=== PATIENT | female | born 1955 | race Caucasian/White ===

== ENCOUNTER 2016-04-30 00:12 | Emergency (ER) | payer MEDICARE ==
[2016-04-30 00:44] VITALS: BP 178/62
--- NOTE | 2016-04-30 07:57 | EKG REPORT ---
SEVERITY:- BORDERLINE ECG - SINUS RHYTHM PROBABLE LEFT ATRIAL ABNORMALITY BORDERLINE R WAVE PROGRESSION, ANTERIOR LEADS : Confirmed by: Sita Garcia 30-Apr-2016 07:57:12
== END 2016-04-30 04:35 | disposition left against medical advice (07) ==
LOC: ER 00:12
DX: Z53.9 Procedure and treatment not carried out, unspecified reason (principal); R06.02 Shortness of breath
CPT/HCPCS: 93005; 93010

== ENCOUNTER 2016-09-03 23:37 | Emergency (ER) | payer MEDICARE, MEDICAID ==
--- NOTE | 2016-09-04 01:46 | ER Document Report ---
ED General - General Chief Complaint: Fall Stated Complaint: FALL/HEAD INJURY Time Seen by Provider: 09/04/16 01:45 Mode of Arrival: Ambulatory Information source: Patient TRAVEL OUTSIDE OF THE [place] IN LAST 30 DAYS: No - HPI Notes: Patient presents with reports that she got up from a seated position outside and then stumbled fell struck her head against the edge of a wall and felt dizzy after striking her head. Patient reports a mild headache since that time. She denies any other significant musculoskeletal injury. She reports no chest pain or palpitations with this episode, but she questions having a rapid heart rate on another occasion. The patient reports no abdominal pain, neck pain, back pain or other injury. No recent medication changes. - Related Data Allergies/Adverse Reactions: amoxicillin [From Augmentin] Allergy (Verified 09/03/16 23:49) azithromycin [From Zithromax] Allergy (Verified 09/03/16 23:49) bupropion [From Wellbutrin] Allergy (Verified 09/03/16 23:49) cephalexin [From Keflex] Allergy (Verified 09/03/16 23:49) clavulanic acid [From Augmentin] Allergy (Verified 09/03/16 23:49) Iodinated Contrast Media - Oral and [Iodinated Contrast Media - IV Dye] Allergy (Verified 09/03/16 23:49) prednisone Allergy (Verified 09/03/16 23:49) Past Medical History - General Information source: Patient - Social History Smoking Status: Former Smoker Frequency of alcohol use: None Drug Abuse: None Lives with: Alone Family History: Reviewed & Not Pertinent Patient has suicidal ideation: No Patient has homicidal ideation: No - Past Medical History Cardiac Medical History: Reports: Hx Hypercholesterolemia, Hx Hypertension Renal/ Medical History: Denies: Hx Peritoneal Dialysis Psychiatric Medical History: Reports: Hx Depression Past Surgical History: Reports: Hx Tubal Ligation Review of Systems - Review of Systems Notes: REVIEW OF SYSTEMS: CONSTITUTIONAL : Denies fever, chills, or sweats. Denies recent illness. EENT: Denies eye, ear, throat, or mouth pain or symptoms. Denies nasal or sinus congestion or discharge. Denies throat, tongue, or mouth swelling or difficulty swallowing. CARDIOVASCULAR: Denies chest pain. Denies palpitations or racing or irregular heart beat. Denies ankle edema. RESPIRATORY: Denies cough, cold, or chest congestion. Denies shortness of breath, difficulty breathing, or wheezing. GASTROINTESTINAL: Denies abdominal pain or distention. Denies nausea, vomiting , or diarrhea. Denies blood in vomitus, stools, or per rectum. Denies black, tarry stools. Denies constipation. GENITOURINARY: Denies difficulty urinating, painful urination, burning, frequency, blood in urine, or discharge. FEMALE GENITOURINARY: Denies vaginal bleeding, heavy or abnormal periods, irregular periods. Denies vaginal discharge or odor. MUSCULOSKELETAL: Denies back or neck pain or stiffness. Denies joint pain or swelling. SKIN: Denies rash, lesions or sores. HEMATOLOGIC : Denies easy bruising or bleeding. LYMPHATIC: Denies swollen, enlarged glands. NEUROLOGICAL: Denies confusion or altered mental status. Patient's unsure if she may have briefly lost consciousness, although she did not awake on the floor. Denies weakness or paralysis or loss of use of either side. Denies problems with gait or speech. Denies sensory loss, numbness, or tingling. Denies seizures. PSYCHIATRIC: Denies anxiety or stress. Denies depression, suicidal ideation, or homicidal ideation. ALL OTHER SYSTEMS REVIEWED AND NEGATIVE. Dictation was performed using [employer] voice recognition software Physical Exam - Vital signs Vitals: Temp Pulse Resp BP Pulse Ox 97.7 F 84 20 187/81 H 96 09/03/16 23:49 09/03/16 23:49 09/03/16 23:49 09/03/16 23:49 09/03/16 23:49 - Notes Notes: PHYSICAL EXAMINATION: GENERAL: Well-appearing, well-nourished and in no acute distress. HEAD: Normocephalic, but the patient does have contusion to the left parietal region. No bony deformity or crepitance. EYES: Pupils equal round and reactive to light, extraocular movements intact, conjunctiva are normal. ENT: Nares patent, oropharynx clear without exudates. Moist mucous membranes. Extremely poor dentition. Tympanic membranes clear bilaterally. NECK: Normal range of motion, supple without lymphadenopathy LUNGS: Breath sounds clear to auscultation bilaterally and equal. No wheezes rales or rhonchi. HEART: Regular rate and rhythm without murmurs ABDOMEN: Soft, nontender, nondistended abdomen. No guarding, no rebound. No masses appreciated. Female : deferred Musculoskeletal: Normal range of motion, no pitting or edema. No cyanosis. No pain to all 4 extremities. NEUROLOGICAL: Cranial nerves grossly intact. Normal speech, normal gait. Normal sensory, motor exams. No cerebellar ataxia. Patient is alert and oriented 4. PSYCH: Normal mood, normal affect. SKIN: Warm, Dry, normal turgor, no rashes or lesions noted. Course - Re-evaluation Re-evalutation: 09/04/16 05:[address] scan which was negative for acute intracranial injury or other abnormality. Patient was hypothyroid, and most likely subtherapeutic on her Synthroid 125 g daily, which she stated she was compliant with. No renal insufficiency or anemia or cardiac ischemia. Patient states she has a previous history of hyperglycemia and has previously been on Glucophage, but states she was able to be taken off of it due to good diet control. Patient was observed drinking a regular cola at the bedside and her blood sugar was 370. Diabetic dietary counseling was undertaken, and the patient has a follow-up on Wednesday to obtain a glucometer and further evaluation and most likely will need a hemoglobin A1c. With a normal bicarbonate, there is no evidence for DKA. Question of the patient's occasional lightheaded sensation may be secondary to relative dehydration related to her hyperglycemia. - Vital Signs Vital signs: Temp Pulse Resp BP Pulse Ox 97.4 F 81 18 159/92 H 97 09/04/16 05:00 09/04/16 05:00 09/04/16 05:00 09/04/16 05:00 09/04/16 05:00 - Laboratory Result Diagrams: 09/04/16 02:23 09/04/16 02:23 Laboratory results interpreted by me: 09/04/16 09/04/16 02:23 02:23 Glucose 370 H Direct Bilirubin 0.5 H Alkaline Phosphatase 149 H TSH 11.50 H Free T4 0.67 L - EKG Interpretation by Nc EKG shows normal: Sinus rhythm Additional EKG results interpreted by me: 09/04/16 03:01 EKG as interpreted by ks showed normal sinus rhythm heart rate of 66. There is no gross evidence for acute KS or ischemia noted. There is no change from previous EKG reviewed from 04/30/16. 09/04/16 03:03 Discharge - Discharge Clinical Impression: Hyperglycemia Hypothyroidism Qualifiers: Hypothyroidism type: unspecified Qualified Code(s): E03.9 - Hypothyroidism, unspecified Head injury Qualifiers: Encounter type: initial encounter Qualified Code(s): S09.90XA - Unspecified injury of head, initial encounter Condition: Stable Disposition: HOME, SELF-CARE Instructions: Hypothyroidism ([facility]), Hyperglycemia ([facility]), Head Injury Precautions ([facility]) Additional Instructions: You need follow-up for hyperglycemia. U will need a glucometer and further diabetic education. Maintain a low sugar diabetic diet. Drink plenty of water. Increase her Synthroid level from 125 to 175 g daily. Prescriptions: Levothyroxine Sodium [Synthroid] 175 mcg PO DAILY #30 tablet Metformin HCl [Glucophage] 500 mg PO BID #60 tablet
[2016-09-04 02:35] LABS: ABSOLUTE EOSINOPHILS # (AUTO) 0.2 10^3/uL (0.0-0.6); ABSOLUTE LYMPHOCYTES (AUTO) 3.5 10^3/uL (0.5-4.7); ABSOLUTE MONOCYTES (AUTO) 0.7 10^3/uL (0.1-1.4); ABSOLUTE NEUT (AUTO) 4.7 10^3/uL (1.7-8.2); BASOPHILS % (AUTO) 0.5 % (0-2); EOSINOPHILS % (AUTO) 2.4 % (0-6); HEMATOCRIT 42.4 % (36.0-47.0); HEMOGLOBIN 14.5 g/dL (12.0-15.5); HGB HCT DIFFERENCE 1.1; LYMPHOCYTES % (AUTO) 38.4 % (13-45); MEAN CORPUSCULAR HGB CONC 34.3 g/dL (32.0-36.0); MEAN CORPUSCULAR VOLUME 93 fl (80-97); MONOCYTES % (AUTO) 7.3 % (3-13); RED BLOOD COUNT 4.54 10^6/uL (3.72-5.28); RED CELL DISTRIBUTION WIDTH 13.5 % (11.5-14.0); SEGMENTED NEUTROPHILS % (AUTO) 51.4 % (42-78); WHITE BLOOD COUNT 9.2 10^3/uL (4.0-10.5)
[2016-09-04 02:43] LABS: ALANINE AMINOTRANSFERASE 25 U/L (9-52); ALBUMIN 3.8 g/dL (3.5-5.0); ALKALINE PHOSPHATASE 149 U/L (38-126); ANION GAP 13 (5-19); ASPARTATE AMINO TRANSFERASE 30 U/L (14-36); BILIRUBIN,DIRECT 0.5 mg/dL (0.0-0.4); BILIRUBIN,TOTAL 0.7 mg/dL (0.2-1.3); BLOOD UREA NITROGEN 17 mg/dL (7-20); CALCIUM 9.5 mg/dL (8.4-10.2); CARBON DIOXIDE 24 mmol/L (22-30); CHLORIDE 102 mmol/L (98-107); CREATININE RESULT 0.85 mg/dL (0.52-1.25); POTASSIUM 4.1 mmol/L (3.6-5.0); SODIUM 138.6 mmol/L (137-145); TOTAL PROTEIN 6.8 g/dL (6.3-8.2)
[2016-09-04 02:49] LABS: GLUCOSE 370 mg/dL (75-110)
[2016-09-04 03:13] LABS: THYROID STIMULATING HORMONE 11.5 uIU/mL (0.47-4.68)
[2016-09-04 05:11] VITALS: BP 159/92
[2016-09-04] MEDS ORDERED: METFORMIN HCL 500 MG TABLET PO ONE (05:32)
--- NOTE | 2016-09-04 12:05 | EKG REPORT ---
SEVERITY:- BORDERLINE ECG - SINUS RHYTHM PROBABLE LEFT ATRIAL ABNORMALITY BORDERLINE T ABNORMALITIES, INFERIOR LEADS : Confirmed by: Sita Garcia 04-Sep-2016 12:04:58
== END 2016-09-04 05:40 | disposition home or self-care (01) ==
LOC: ER 23:37
DX: S09.90XA Unspecified injury of head, initial encounter (principal); E03.9 Hypothyroidism, unspecified; R73.9 Hyperglycemia, unspecified; R42 Dizziness and giddiness; R51 Headache; W19.XXXA Unspecified fall, initial encounter; Z87.891 Personal history of nicotine dependence
CPT/HCPCS: 93005; 99284; 36415; 84439; 84443; 85025; 80053; 70450; 93010; A9270

== ENCOUNTER → 2017-09-22 | Outpatient (CLI) | payer MEDICARE, MEDICAID ==
--- NOTE | 2017-09-22 15:09 | RADIOLOGY REPORT (SQ) ---
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 TECHNIQUE: Pre and post IV contrast scanning, thin section axial imaging through the brain to evalua te the arterial structures. Source and MIP images are saved and reviewed on PACS. Advanced 3D imaging as volume-rendering, MIPs, SSD performed? yes All CT scanners at this facility use dose modulation, iterative reconstruction, and/or weight based d osing when appropriate to reduce radiation dose to as low as reasonably achievable (ALARA). [facility]: Dose Right [facility]: CareDose [facility]: Dose Right [facility]: Teradose 4D [facility]: InvitedHome CONTRAST TYPE AND DOSE: contrast/concentration: Isovue 370.00 mg/ml; Total Contrast Delivered: 80.0 ml; Total Saline Delivered: 75.0 ml RENAL FUNCTION: Creatinine 0.8 LIMITATIONS: Mild streak artifact from right-sided carotid terminus aneurysm clip FINDINGS: [place] OF BL[place]: There is fullness at the anterior communicating artery region without an eurysm. This is best shown on axial postcontrast image 131/332. There is an aneurysm clip along the right carotid terminus. No recurrent right carotid terminus aneu rysm seen. No stenosis in this area. Bilateral intracranial carotid arteries, middle cerebral and anterior cerebral arteries are otherwise unremarkable. There are patent small posterior communicating arteries bilaterally. No vertebrobasilar system stenosis or aneurysm. BRAIN: Post right temporal craniotomy. Right carotid terminus aneurysm clip. Pre contrasted imaging demonstrates no CT evidence of acute large territory ischemic change, acute intracranial hemorrhage, mass effect, or midline shift. Postcontrast, no abnormal vascular or brain parenchymal enhancement is seen. Orbits unremarkable. BONES: Old right temporal craniotomy SINUSES: No fluid or mucosal thickening. OTHER: No other significant finding. IMPRESSION: Fullness at the anterior communicating artery region without definite aneurysm. Right carotid terminus aneurysm clip without recurrent right ICA aneurysm TECHNICAL DOCUMENTATION: JOB ID: [id number] Quality ID # [id number]: Final reports with documentation of one or more dose reduction techniques (e.g., Au tomated exposure control, adjustment of the mA and/or kV according to patient size, use of iterative reconstruction technique) 2010 [employer]- All Rights Reserved Reading location - IP/workstation name: [email or web address]
== END ==
LOC: RAD 12:47
PROVIDERS: ATTEND Neurological Surgery
DX: I67.1 Cerebral aneurysm, nonruptured (principal); Z86.79 Personal history of other diseases of the circulatory system
CPT/HCPCS: 70496; 82565